=== PATIENT | male | born 1970 | race Caucasian/White ===

== ENCOUNTER 2020-04-21 09:37 | Emergency (ER) | payer BC, OTHER ==
[~2020-04-21] VITALS: Ht 175.2 cm; Wt 97.5 kg
[2020-04-21] MEDS ORDERED: LIDOCAINE/EPI 2% 1:100,00 (XYLOCAINE) 20 ML VIAL INJ ONE (10:15)
--- NOTE | 2020-04-21 10:21 | ED Lower Extremity ---
General Chief Complaint: Laceration Stated Complaint: RT LEG INJ Nursing Triage Note: Patient presents to the ED with c/o of laceration to medial left lower leg. He states he was carrying a piece of plate glass when it broke falling and cutting his left lower leg. Nursing Sepsis Screen: No Definite Risk History of Present Illness Date Seen by Provider: Apr 21, 2020 Time Seen by Provider: 09:50 Initial Comments The patient is an otherwise healthy 49-year-old male whose tetanus is not up-to-date. He presents for evaluation of a subcutaneous hemostatic flap laceration to his medial right lower extremity occurring just prior to arrival when a piece of plate glass he was carrying fell and cut his leg. No other in jury occurred during the episode. No therapy prior to arrival. Patient is related and without any difficulty and appears to be in absolutely no acute distress. Vital signs are appropriate here. Allergies and Home Medications Allergies Coded Allergies: No Known Drug Allergies (Unverified , 04/21/20) Patient Home Medication List Home Medication List Reviewed: Yes Review of Systems Constitutional: see HPI All Other Systems Reviewed Negative Unless Noted: Yes (Negative excepted noted.) Past Rpiltqw-Awxskc-Uesyst Hx Past Med/Social Hx: Reviewed Nursing Past Med/Soc Hx Patient Social History Alcohol Use: Denies Use Recreational Drug Use: No Smoking Status: Never a Smoker 2nd Hand Smoke Exposure: No Recent Foreign Travel: No Contact w/Someone Who Travel: No Recent Infectious Disease Expo: No Recent Hopitalizations: No Physical Abuse: No Sexual Abuse: No Mistreated: No Fear: No Immunizations Up To Date Tetanus Booster (TDap): More than 5yrs Seasonal Allergies Seasonal Allergies: No Past Medical History Surgeries: Yes (L Index finger tendon repair) Respiratory: No Cardiac: No Neurological: No Genitourinary: No Gastrointestinal: No Musculoskeletal: No Endocrine: No HEENT: No Cancer: No Psychosocial: No Integumentary: No Blood Disorders: No Family Medical History Reviewed Nursing Family Hx Physical Exam Vital Signs Vital Signs - First Documented 04/21/20 09:43 Temp 36.2 Pulse 67 Resp 18 B/P (MAP) 167/96 (119) Pulse Ox 97 O2 Delivery Room Air Capillary Refill : Less Than 3 Seconds Height, Weight, BMI Height: '" Weight: lbs. oz. kg; 31.00 BMI Method: General Appearance: no apparent distress This is an older male appearing nontoxic and in no acute distress. Head is normocephalic and atraumatic. Neck is supple and nontender. Oropharynx is moist. Lungs are clear to auscultation at all stations. There is a normal S1 and S2 without rubs or gallops and capillary refill is appropriate, less than 2 seconds globally. Abdomen is soft, nontender and nondistended. Skin is warm and dry without cyanosis, clubbing or edema. Psychiatrically, the patient demonstrates appropriate mood and affect and is alert. From a musculoskeletal standpoint, evaluation of the right lower extremity is remarkable for an approximately 6 cm long flaplike laceration to the medial aspect of the lower mid right kenny. This is hemostatic and subcutaneous in depth. Wound is explored and no foreign body is identified. Few superficial healing abrasions are also seen to the right lower leg which patient states are older and are not bothering him. The right lower extremity is neurovascularly intact distally with strength 5 out of 5, sensation intact to light touch in all nerve distributions, DP and PT pulses 2+, capillary refill less than 2 seconds, 4 warm and well-perfused. Procedures/Interventions Other Wound Location Right lower leg Wound Length (cm): 9 Wound's Depth, Shape: flap Wound Explored: clean Irrigated w/ Saline (ccs): 1000 Anesthesia: Lidocaine w/ Epi Volume Anesthetic (ccs): 10 Suture: Ethlion Suture Size: 3-0 Number of Sutures: 14 Layer Closure?: 1 Progress Tolerated well; no complications. Progress/Results/Core Measures Results/Orders My Orders Orders - AMANDA PARNELL MD Tibia Fibula 2 View Right (04/21/20 10:04) Lidocaine/Epi 2% 1:100,000 (Xylocaine/Ep (04/21/20 10:15) Vital Signs/I&O 04/21/20 09:43 Temp 36.2 Pulse 67 Resp 18 B/P (MAP) 167/96 (119) Pulse Ox 97 O2 Delivery Room Air Blood Pressure Mean: 119 Progress Progress Note : Time: 10:23 Progress Note Will obtain plain films to ensure no glass foreign body in wound and we will wash out and disinfect laceration and then repair with suture. Will update tetanus. Patient is in agreement with this plan of care. He declines any pain medication at this time. 1045: Plain films reveal no evidence of retained foreign body and laceration was copiously explored by me and no evidence of retained foreign body was identified. Laceration was copiously washed and disinfected and sutures were placed as per procedure note. Patient tolerated the repair well. We will proceed with discharge home at this time. Patient is advised to return in 7-10 days for suture removal and in the meantime he is to watch for signs of infection which we have discussed at some length. I have counseled Neosporin twice a day and dressing changes daily. Patient understands that if he feels worse is that of better or develops other new symptoms of concern that he will need to return to the emergency department immediately for reevaluation. All questions are answer ed. Departure Impression Primary Impression: Laceration of right lower leg Qualified Codes: S81.811A - Laceration without foreign body, right lower leg, initial encounter Disposition: HOME, SELF-CARE Condition: Improved Departure-Patient Inst. Patient Instructions: Laceration Repair With Stitches (DC), Diphtheria and Tetanus Toxoids, and Acellular Pertussis Vaccine Add. Discharge Instructions: Return to the emergency department or follow-up in your doctor's office in 7-10 days as discussed for suture removal. In the meantime, change dressings daily and use Neosporin on the site twice a day to prevent infection. Use ibuprofen 600 mg every 6 hours as needed for discomfort. Return to the emergency depa rtment right away with increased redness, warmth, swelling and/or pain to the site or with any other new symptoms of concern. Scripts Ibuprofen (Ibuprofen) 600 Mg Tablet 600 MG PO Q6H PRN for PAIN-MILD, #40 TAB Prov: AMANDA PARNELL MD 04/21/20 AMANDA PARNELL MD Apr 21, 2020 10:21
--- NOTE | 2020-04-21 10:38 | Diagnostic Imaging Report ---
EXAMINATION: Right tibia and fibula radiographs, 2 views. COMPARISON: None. HISTORY: 49-year-old male, injury with broken glass. FINDINGS: There is a lucency in the medial soft tissues at the level of the distal tibial diaphysis which could relate to a site of soft tissue injury. There is no radiographically visible foreign body. There is no identified acute fracture, cortical bone destruction, or periosteal reaction. There is a small calcaneal heel spur. IMPRESSION: 1. Lucency within the medial soft tissues at the level of the distal tibial diaphysis which could relate to a site of soft tissue injury. 2. No radiographically visible foreign body. 3. No identified acute osseous abnormality. Dictated by: Dictated on workstation # [id number]
[2020-04-21] MEDS ORDERED: IBUP-1773 PO (11:00)
[2020-04-21] MEDS ORDERED: TETANUS,DIPTH,PERTUSS P/F (BOOSTRIX) 0.5 ML VIAL IM ONE (11:15)
[2020-04-21 11:25] VITALS: BP 148/88
== END 2020-04-21 11:25 | disposition home or self-care (01) ==
LOC: ER FS 09:40
DX: S81.811A Laceration without foreign body, right lower leg, initial encounter (principal); Z23 Encounter for immunization; W25.XXXA Contact with sharp glass, initial encounter
CPT/HCPCS: 12015; 73590; 90715

== ENCOUNTER 2020-04-30 09:36 | Emergency (ER) | payer BC ==
[~2020-04-30 09:36] MED LIST: IBUP-1773 PO
--- OUTSIDE RECORDS SUMMARY | 2020-04-30 09:45 | XMS REPORT | Continuity of Care Document ---
Author Organization Unknown Address Unknown Phone Unavailable Allergies Active Description Code Type Severity Reaction Onset Reported/Identified Relationship to Patient Clinical Status Yes No Known Drug Allergies [id number] Drug Allergy Unknown N/A 04/21/2020 Medications There is no data. Problems Date Dx Coded Attending Type Code Diagnosis Diagnosed By 04/23/2020 PARMJIT PHILLIPS, AMANDA Portillo Ot M79.661 PAIN IN RIGHT LOWER LEG 04/23/2020 AMANDA PARNELL MD Ot S81.811A LACERATION W/O FOREIGN BODY, RIGHT LOWER 04/23/2020 AMANDA PARNELL MD Ot W25.XXXA CONTACT WITH [place], INITIAL ENCOUN 04/23/2020 AMANDA PARNELL MD Ot Z23 ENCOUNTER FOR IMMUNIZATION Procedures There is no data. Results There is no data. Encounters ACCT No. Visit Date/Time Discharge Status Pt. Type Provider Facility Loc./Unit Complaint [id number] 04/21/2020 09:40:00 020 11:25:00 DIS Outpatient AMANDA PARNELL MD Via [facility] ER FS RT LEG INJ
[2020-04-30 09:52] VITALS: BP 153/87
== END 2020-04-30 09:55 | disposition home or self-care (01) ==
LOC: EDUNIT# 09:36 → ER FS 09:37
DX: S81.811D Laceration without foreign body, right lower leg, subsequent encounter (principal); X58.XXXD Exposure to other specified factors, subsequent encounter